=== PATIENT | male | born 1970 | race Caucasian/White ===

== ENCOUNTER 2018-01-14 10:01 | Emergency (ER) | payer OTHER ==
[2018-01-14] MEDS ORDERED: Proparacaine 0.5% Opth 15 ML BOT ONE (10:12)
[2018-01-14] MEDS ORDERED: Fluorescein Opthalmic Strip ONE (10:12)
== END 2018-01-14 11:14 | disposition home or self-care (01) ==
LOC: ERS 10:01 → EEVIPCON 10:01 → ERS 11:14
DX: H11.421 Conjunctival edema, right eye (principal); E78.5 Hyperlipidemia, unspecified; I10 Essential (primary) hypertension; F41.9 Anxiety disorder, unspecified; Z79.899 Other long term (current) drug therapy
CPT/HCPCS: 99283